=== PATIENT | male | born 1945 | race Caucasian/White ===

== ENCOUNTER → 2020-02-06 | Outpatient (CLI) | payer OTHER ==
[~2020-02-06] MED LIST: REGADENOSON 0.4 MG/5 ML PF SYG IVP SCH
== END | disposition home or self-care (01) ==
LOC: SHCH 08:23
PROVIDERS: ATTEND Internal Medicine Cardiovascular Disease
DX: R07.9 Chest pain, unspecified (principal)
CPT/HCPCS: 78452; 93017; 96374; A9500 ×2; J2785

== ENCOUNTER 2024-02-11 14:19 | Emergency (ER) | payer OTHER ==
[~2024-02-11] VITALS: Ht 177.8 cm; Wt 112.9 kg
[2024-02-11] MEDS: ACETAMINOPHEN 325 MG TAB PO ONE (15:48)
[2024-02-11 18:25] VITALS: BP 144/78; PULSE 51; RESP 18; O2SAT 96
[2024-02-11] MEDS ORDERED: PRED20TA3 PO (18:35)
[2024-02-11] MEDS ORDERED: MELO-106 PO (18:35)
== END 2024-02-11 18:38 | disposition home or self-care (01) ==
LOC: EDH 14:19
DX: M50.30 Other cervical disc degeneration, unspecified cervical region (principal); I10 Essential (primary) hypertension; Z88.8 Allergy status to other drugs, medicaments and biological substances
CPT/HCPCS: 72040